=== PATIENT | female | born 1935 | race Two or more races ===

== ENCOUNTER 2017-02-02 12:21 | Emergency (ER) | payer MEDICARE, MEDICAID ==
[~2017-02-02] VITALS: Ht 149.9 cm; Wt 58.1 kg
[2017-02-02 12:34] VITALS: BP 150/80
[2017-02-02] MEDS ORDERED: TRIAMCINOLONE A15 GM TP (12:53)
[2017-02-02] MEDS ORDERED: BENADRYL25 MG ORAL (12:53)
--- NOTE | 2017-02-02 20:50 | Emergency Room Report ---
History of Present Illness General Chief Complaint: Skin Rash/Abscess Source: Family Member Present Illness HPI The patient is an 81-year-old female accompanied by daughter for total-body rash which began approximately one week prior. The daughter does admit to using a new detergent at this time. She has tried [id number] cortisone cream which has been helping. Allergies: Coded Allergies: No Known Allergies (Unverified , 02/02/17) Patient History Past Medical History: see triage record Pertinent Family History: none Reviewed Nursing Documentation: PMH: Agreed, PSxH: Agreed Nursing Documentation-PMH Hx Cardiac Problems: No Hx Hypertension: Yes Hx Pacemaker: No Hx Asthma: No Hx COPD: No Hx Diabetes: No Hx Cancer: No Hx Gastrointestinal Problems: No Hx Dialysis: No History Of Psychiatric Problem: No Hx Neurological Problems: No Hx Cerebrovascular Accident: No Hx Seizures: No Review of Systems All Other Systems: negative except mentioned in HPI Physical Exam Vital Signs Date Time Temp Pulse Resp B/P (MAP) Pulse Ox O2 Delivery O2 Flow Rate FiO2 02/02/17 12:24 98.1 84 18 150/80 98 Room Air Sp02 EP Interpretation: reviewed, normal General Appearance: no apparent distress, alert, GCS 15, non-toxic Head: normocephalic, atraumatic Eyes: bilateral eye normal inspection, bilateral eye PERRL ENT: hearing grossly normal, normal pharynx, no angioedema, normal voice Neck: full range of motion, supple/symm/no masses Respiratory: chest non-tender, lungs clear, normal breath sounds, speaking full sentences Cardiovascular #1: regular rate, rhythm, no edema Musculoskeletal: back normal, gait/station normal, normal range of motion, non- tender Neurologic: alert, oriented x3, responsive, motor strength/tone normal, sensory intact, speech normal Psychiatric: judgement/insight normal, memory normal, mood/affect normal, no suicidal/homicidal ideation Skin: normal turgor, rash - multiple maculopapular lesions with central lesions on extremities, torso, and back Lymphatic: no adenopathy Medical Decision Making PA Attestation Dr. Lantigua is my supervising physician. Patient management was discussed with my supervising physician Diagnostic Impression: Primary Impression: Insect bites Qualified Codes: W57.XXXA - Bitten or stung by nonvenomous insect and other nonvenomous arthropods, initial encounter ER Course The patient is an 81-year-old female accompanied by daughter for total-body rash which began approximately one week prior Ddx considered include but not limited to insect bite, contact dermatitis, eczema, cellulitis PE: NAD. afebrile. multiple maculopapular lesions with central lesions on extremities, torso, and back. No obvious pattern. No burrowing the scene. No lesions on the palms or soles of feet. The patient discharged home with a prescription for Benadryl and triamcinolone. She will avoid using any new products such as soaps or detergents. The daughter was told to clean the entire room and clothing for the patient as this may be due to to insects. Patient is to followup with primary doctor ER precautions given Last Vital Signs Date Time Temp Pulse Resp B/P (MAP) Pulse Ox O2 Delivery O2 Flow Rate FiO2 02/02/17 13:11 98.1 78 18 150/80 98 Room Air Status: improved Disposition: HOME, SELF-CARE Condition: Improved Scripts Diphenhydramine Hcl* (BENADRYL*) 25 Mg Capsule 25 MG ORAL Q6H Y for Itching, #30 CAP Prov: GARCÍA OAKLEY.A. 02/02/17 Triamcinolone Acetonide (TRIAMCINOLONE ACETONIDE) 15 Gm Cream..g. 0.1 % TP TID, #15 GM Prov: GARCÍA OAKLEY.A. 02/02/17 Referrals: NOT APPLICABLE THIS PATIENT,RE (PCP) Patient Instructions: Rash, Insect Bite, [id number] Additional Instructions: I discussed my findings with the patient. All questions and concerns have been answered. Treatment and medication compliance have been addressed. I advised the patient that they need to follow up with primary doctor within one week for follow-up. Return to Emergency department if symptoms worsen, new symptoms arise such as fever, worsening rash, or if needed for any reason. Patient verbalized understanding of discharge instructions. GARCÍA OAKLEY Feb 02, 2017 20:50
== END 2017-02-02 15:09 | disposition home or self-care (01) ==
LOC: EMR 12:56
DX: S30.860A Insect bite (nonvenomous) of lower back and pelvis, initial encounter (principal); S30.861A Insect bite (nonvenomous) of abdominal wall, initial encounter; W57.XXXA Bitten or stung by nonvenomous insect and other nonvenomous arthropods, initial encounter; S40.869A Insect bite (nonvenomous) of unspecified upper arm, initial encounter; S80.869A Insect bite (nonvenomous), unspecified lower leg, initial encounter; Y92.9 Unspecified place or not applicable; R21 Rash and other nonspecific skin eruption; I10 Essential (primary) hypertension
CPT/HCPCS: 99284